=== PATIENT | female | born 1975 | race Asian ===

== ENCOUNTER 2018-06-14 08:47 | Day surgery (SDC) | payer OTHER ==
[2018-06-14] MEDS ORDERED: LIDOCAINE 4% SOLUTION 50 ML BTL ×2 (10:37→10:41)
[2018-06-14] MEDS ORDERED: FENTAnyl 50 MCG/ML VIAL (11:15)
[2018-06-14] MEDS ORDERED: MIDAZOLAM 1 MG/ML 2 ML INJ ×2 (11:15)
== END 2018-06-14 12:41 | disposition home or self-care (01) ==
LOC: SDS 08:47 → GIL 08:54 → SDS 12:41
DX: R12 Heartburn (principal); K29.50 Unspecified chronic gastritis without bleeding
CPT/HCPCS: 43999; 88305; 88312; 88313